=== PATIENT | female | born 1990 | race Caucasian/White ===

== ENCOUNTER → 2017-09-12 | Outpatient (CLI) | payer OTHER ==
[2016-05-02 17:37] VITALS: BMI 29.8
[~2017-09-12] MED LIST: ALBU8.5H IH; BUDE10.2 INH; BUDE10.25 IH; DOXY-229 PO; IBUP800T37 PO; Ibuprofen PO; LOR5/325 PO; OXYC-373 PO; PREN-127 PO; SUMA50TA35 PO
== END ==
LOC: LAB 14:16
PROVIDERS: ATTEND Obstetrics & Gynecology
DX: N92.0 Excessive and frequent menstruation with regular cycle (principal)
CPT/HCPCS: 36415; 84443; 85027; 85730

== ENCOUNTER 2017-10-07 21:07 | Emergency (ER) | payer OTHER ==
[2016-05-02 17:37] VITALS: Wt 68.0 kg
[2017-10-07 21:11] VITALS: BP 132/71
--- NOTE | 2017-10-07 21:13 | ER Report ---
History and Physical Time Seen By MD: 21:12 HPI/ROS CHIEF COMPLAINT: Swelling and redness of foot HISTORY OF PRESENT ILLNESS: 27-year-old female seen with redness and swelling of her right toes 2 through 4. She was started on antibiotics earlier today. She is concerned now that the erythema hasn't spread across the forefoot and involves arch of the foot. She notes no red streaks up her leg. She notes no calf tenderness. She notes no systemic fevers, chills or body aches. Allergies: Coded Allergies: cefaclor (Verified Allergy, Severe, 10/07/17) Home Meds Active Scripts Budesonide/Formoterol Fumarate (SYMBICORT 160-4.5 MCG INHALER) 10.2 Gm Inh, 10.2 GM INH BID, #1 INH 11 Refills Prov:RIGOBERTO TREADWELL MD 09/12/17 Sumatriptan Succinate (SUMATRIPTAN SUCCINATE) 50 Mg Tablet, 50 MG PO ONCE Y for migraine, #10 TAB 1 Refill Take one tablet po when migraine starts, may repeat after 2 hours one time if needed Prov:RIGOBERTO TREADWELL MD 07/05/17 Reported Medications Sulfamethoxazole/Trimet 800-160 Mg Tab (BACTRIM DS TABLET) 1 Each Tablet, 1 TAB PO Q12H, TAB 10/07/17 Prednisone (PREDNISONE) 20 Mg Tablet, 20 MG PO QDAY, TAB 10/07/17 Discontinued Scripts Doxycycline Monohydrate (DOXYCYCLINE MONOHYDRATE) 100 Mg Tablet, 100 MG PO BID, #20 TAB 0 Refills 1 tab PO twice daily for 10 days Prov:RIGOBERTO TREADWELL MD 09/12/17 Albuterol Sulfate 90 Mcg/Act (PROAIR HFA 90 MCG/ACT) 8.5 Gm Hfa.aer.ad, 1-2 PUFF IH 3-4XD Y for wheezing for 30 Days, #1 INHALER 2 Refills Prov:RIGOBERTO TREADWELL MD 07/05/17 Reviewed Nurses Notes: Yes Old Medical Records Reviewed: Yes Hx Smoking: No Smoking Status: Never Smoker Exposure to Second Hand Smoke?: No Constitutional Vital Sign - Last 24 Hours 10/07/17 21:11 Temp 98.1 Pulse 100 Resp 16 B/P (MAP) 132/71 Pulse Ox 92 O2 Delivery Room Air Physical Exam General appearance: Alert no distress. Respiratory: Chest is non tender, lungs are clear to auscultation. Cardiac: Regular rate and rhythm Extremities: Examination of the right foot reveals neurovascularly intact foot. The toes are mildly erythematous. Erythema extends up the entire forefoot and into the arch of the foot yearly to the heel. There are no red streaks, there is no calf tenderness. There is no Homans sign. DIFFERENTIAL DIAGNOSIS: After history and physical exam differential diagnosis was considered for cellulitis, allergic reaction, arthritis Medical Decision Making ED Course/Re-evaluation ED Course Patient was admitted to an examination room. H&P was done. The dental diagnoses was considered. On clinical examination. Patient has spreading of the erythema up to her foot. This many natural progression. I do not think that her cellulitis is getting worse. Patient's advised to continue the course in take ibuprofen 600 mg 3 times daily and apply warm compresses to her foot. She is advised to follow-up with primary care or whoever prescribed the antibiotic if unimproved in 2-3 days. Decision to Disposition Date: Oct 07, 2017 Decision to Disposition Time: 21:24 Depart Departure Latest Vital Signs Vital Signs Date Time Temp Pulse Resp B/P (MAP) Pulse Ox O2 Delivery O2 Flow Rate FiO2 10/07/17 21:11 98.1 100 16 132/71 92 Room Air Impression: Primary Impression: Swelling of right foot Additional Impression: Cellulitis of right toe Condition: Improved Disposition: HOME OR SELF-CARE Referrals: RIGOBERTO TREADWELL MD (PCP) Patient Instructions: Cellulitis (ED) Additional Instructions: Apply warm compresses or soak in hot water Take ibuprofen 200 mg 2-3 tablets 3 times a day with food Take all medication with food Get rechecked if not improved in 2 days Problem Qualifiers JESSICA KELLY DO Oct 07, 2017 21:12
[2017-10-07] MEDS ORDERED: SULF-198 PO (21:21)
[2017-10-07] MEDS ORDERED: PRED20TA6 PO (21:21)
[2017-10-09] MEDS ORDERED: CLIN300C99 PO (10:59)
== END 2017-10-07 21:30 | disposition home or self-care (01) ==
LOC: ER 21:16
DX: L03.031 Cellulitis of right toe (principal); Z79.899 Other long term (current) drug therapy
CPT/HCPCS: 99282

== ENCOUNTER → 2017-10-19 | Outpatient (CLI) | payer OTHER ==
[2016-05-02 17:37] VITALS: BMI 29.8
[~2017-10-19] MED LIST changes: +CLIN300C99 PO; +PRED20TA6 PO; +SULF-198 PO
--- NOTE | 2017-10-19 14:45 | RADIOLOGY IMAGING REPORT ---
FACILITY: [facility] PATIENT NAME: Fallon Cary : 1990 MR: [id number] V: [id number] EXAM DATE: ORDERING PHYSICIAN: RIGOBERTO TREADWELL TECHNOLOGIST: Location: [facility] [place] Patient: Fallon Cary : 1990 Visit/Account:[id number] Date of Sevice: 10/19/2017 EXAMINATION: Doppler ultrasound deep veins unilateral lower extremity HISTORY: Swelling of right foot, cellulitis of right toe. COMPARISON: None. FINDINGS: Grayscale compression, duplex and color Doppler interrogation of the right lower extremity deep veins from common femoral vein to proximal calf was performed. The greater saphenous vein in the ipsilater al proximal thigh was evaluated using similar technique. Right lower extremity: Common femoral vein: Negative. Femoral vein: Negative. Deep femoral vein: Negative. Popliteal vein: Negative. Visualized deep calf veins: Negative. Greater saphenous vein in the proximal thigh: Negative. Popliteal fossa: Negative. Waveforms: Normal respiratory phasicity. There is a 17 x 15 x 11 mm popliteal lymph node with slightly hypoechoic cortex. Normal fatty hilum in the node. IMPRESSION: 1. No DVT of the right lower extremity. 2. Mildly enlarged right popliteal lymph node is likely reactive. Report Dictated By: Amber Goode MD at 10/19/2017 2:39 PM Report E-Signed By: Amber Goode MD at 10/19/2017 2:41 PM WSN:[email or web address]
== END ==
LOC: US 01:05
PROVIDERS: ATTEND Obstetrics & Gynecology
DX: M79.89 Other specified soft tissue disorders (principal); L03.031 Cellulitis of right toe

== ENCOUNTER → 2017-12-25 | Outpatient (CLI) | payer OTHER ==
[2016-05-02 17:37] VITALS: BMI 29.8
[~2017-12-25] MED LIST changes: +BUTA1TAB14 PO
--- NOTE | 2017-12-25 11:40 | RADIOLOGY IMAGING REPORT ---
FACILITY: [facility] PATIENT NAME: Fallon Cary : 1990 MR: [id number] V: [id number] EXAM DATE: ORDERING PHYSICIAN: RIGOBERTO TREADWELL TECHNOLOGIST: Location: [facility] Patient: Fallon Cary : 1990 Visit/Account:[id number] Date of Sevice: 12/25/[address] [facility] HISTORY: pelvic pain, irregular menstrual bleeding TECHNIQUE: Transvaginal and transabdominal ultrasound pelvis. COMPARISON: CT on pelvis March 18, 2015 FINDINGS: Uterus: ; 8.7 cm length x 3.7 cm AP x 6.5 cm transverse. Myometrium: Unremarkable. Endometrium: There is a 7 mm calcification along the superior border of the endometrium; double thick ness 6.7 mm. Cervix: Grossly negative. Ovaries: Right - 2.7 x 1.5 x 2.3 cm Left - 3.6 x 2.2 x 1.9 cm. There is a 1.6 x 1.2 cm hypoechoic region within the left ovary, pos sibly a debris-filled cyst Blood flow is documented in each ovary by duplex Doppler ultrasound. Adnexa: Grossly unremarkable. Free pelvic fluid: mild to moderate amount of free pelvic fluid. IMPRESSION: 7 mm calcification along superior border the endometrium 1.6 x 1.2 cm hypoechoic region within the left ovary, possibly a debris-filled cyst Mild to moderate amount of free pelvic fluid Report Dictated By: Charley Jacques MD at 12/25/2017 11:09 AM Report E-Signed By: Charley Jacques MD at 12/25/2017 11:36 AM WSN:[email or web address]
== END ==
LOC: RAD 07:50
PROVIDERS: ATTEND Obstetrics & Gynecology
DX: Z02.9 Encounter for administrative examinations, unspecified (principal)
CPT/HCPCS: 76830

== ENCOUNTER 2018-01-10 01:45 | Day surgery (SDC) | payer OTHER ==
[2016-05-02 17:37] VITALS: Ht 175.3 cm; Wt 70.3 kg
[2018-01-10] VITALS (7 sets, daily range): BP systolic 96–117; BP diastolic 50–63
[~2018-01-10] VITALS: Ht 175.3 cm; Wt 70.3 kg
[2018-01-10 06:18] LABS: PLATELET COUNT, AUTOMATED 256 K/uL (150-450)
[2018-01-10] MEDS ORDERED: NORMOSOL R SOLN(*) 1000 ML BAG 1,000 ML IV PRN (06:30)
[2018-01-10] MEDS ORDERED: ceFAZolin(*) 1 GM VIAL 1 GM in NS(*) 0.9% 100 ML ADDVANT BAG 100 ML IVPB ONE (06:30)
[2018-01-10] MEDS ORDERED: LIDOCAINE/SOD BICARB 8.4% SYR ID ONE (06:30)
[2018-01-10] MEDS ORDERED: MIDAZOLAM 2 MG/2 ML VIAL IVP PRN (06:30)
[2018-01-10] MEDS ORDERED: FAMOTIDINE 20 MG TAB PO ONE (06:30)
[2018-01-10] MEDS ORDERED: LIDOCAINE MPF 1% 5 ML VIAL ONE (07:09)
[2018-01-10] MEDS ORDERED: PROPOFOL EMUL(*) 10MG/ML 20 ML 20 ML ONE (07:09)
[2018-01-10] MEDS ORDERED: ONDANSETRON 4 MG/2 ML VIAL ONE (07:09)
[2018-01-10] MEDS ORDERED: DEXAMETHASONE SOD 4 MG/ML VIAL ONE (07:09)
[2018-01-10] MEDS ORDERED: fentaNYL CITR 100 MCG/2 ML AMP ONE ×2 (07:10→08:24)
[2018-01-10] MEDS ORDERED: KETAMINE HCL 200 MG/20 ML MDV ONE (07:13)
[2018-01-10] MEDS ORDERED: LR(*) 1000 ML BAG 1,000 ML IV ONE (07:59)
--- NOTE | 2018-01-10 07:59 | Post Operative Note ---
Operative Note - CAFE AIDE Operative Day Date: Jan 10, 2018 Time: 07:58 Physicians Surgeon: Umberto Anesthesia: General LMA, Liz[place]aga Diagnosis Pre-Op Diagnosis: Endometrial mass Post-Op Diagnosis: Calcified placenta Procedure Procedure(s): Dx hscope MyoSure excision of calcified placenta Specimen Removed:(Maybe N/A): Calcified placenta Fluids Fluids: IVF: 1000cc UOP: 30cc Estimated Blood Loss: Minimal RIGOBERTO TREADWELL MD Jan 10, 2018 07:59
[2018-01-10] MEDS ORDERED: METOCLOPRAMIDE 10 MG/2 ML SDV IVP PRN (08:00)
[2018-01-10] MEDS ORDERED: IBUP800T37 PO (08:01)
[2018-01-10] MEDS ORDERED: LOR5/325 PO (08:01)
--- NOTE | 2018-01-10 08:04 | Short(Outpt) Discharge Summary ---
Discharge Summary Reason for Hosp/Final Diag: (1) History of repair of coarctation of aorta Departure Discharge to: Home, Self Care Discharge Instructions Home Meds Active Scripts Hydrocodone Bit/Acetaminophen (HYDROCODON-ACETAMINOPHEN 5-325) 1 Each Tablet, 1 EACH PO Q4-6H PRN for pain, #10 TAB 0 Refills Prov:RIGOBERTO TREADWELL MD 01/10/18 Budesonide/Formoterol Fumarate (SYMBICORT 160-4.5 MCG INHALER) 10.2 Gm Inh, 10.2 GM INH BID, #1 INH 11 Refills Prov:RIGOBERTO TREADWELL MD 09/12/17 Discontinued Reported Medications Sulfamethoxazole/Trimet 800-160 Mg Tab (BACTRIM DS TABLET) 1 Each Tablet, 1 TAB PO Q12H, TAB 10/07/17 Prednisone (PREDNISONE) 20 Mg Tablet, 20 MG PO QDAY, TAB 10/07/17 Discontinued Scripts Butalb/Acetaminophen/Caff 50-325-40 Mg (FIORICET 50-325-40) 1 Each Tablet, 1-2 TAB PO Q4H, #30 TAB 1 Refill Prov:RIGOBERTO TREADWELL MD 12/19/17 Clindamycin Hcl (CLINDAMYCIN HCL) 300 Mg Capsule, 300 MG PO Q8H, #21 CAPSULE Prov:BRENDON BOGGS DO 10/09/17 Sumatriptan Succinate (SUMATRIPTAN SUCCINATE) 50 Mg Tablet, 50 MG PO ONCE PRN for migraine, #10 TAB 1 Refill Take one tablet po when migraine starts, may repeat after 2 hours one time if needed Prov:RIGOBERTO TREADWELL MD 07/05/17 Follow up Referrals: MANAGER LPN - In Two Weeks @ [facility] [place] with RIGOBERTO TREADWELL MD Diet: Regular Activity: As Tolerated RIGOBERTO TREADWELL MD Jan 10, 2018 08:04
--- NOTE | 2018-01-10 08:59 | OPERATIVE REPORT 1 ---
EVENT DATE: January 10, 2018 SURGEON: Anjali Shipman MD ANESTHESIOLOGIST: Ángel Lizarraga MD ANESTHESIA: General/LMA. PREOPERATIVE DIAGNOSIS Endometrial mass. POSTOPERATIVE DIAGNOSIS Calcified placenta. PROCEDURE PERFORMED 1. Diagnostic hysteroscopy. 2. MyoSure excision of calcified placenta. SPECIMEN REMOVED Calcified placenta. IV FLUIDS 1000 cc. URINE OUTPUT 30 cc. ESTIMATED BLOOD LOSS Minimal. INDICATIONS FOR PROCEDURE This patient is a 27-year-old 2, para 2 who presented with difficulties getting as well as pelvic pain. During her evaluation, she was found to have a calcified appearing endometrial lesion. During an SIS, this was confirmed. She, therefore, was consented for hysteroscopic removal of this mass. Please see history and physical for full details. DESCRIPTION OF PROCEDURE The patient was properly identified and taken to the operating room. She was placed under general anesthetic with an LMA. She was then placed in the dorsal lithotomy position and prepped and draped in the usual fashion for a vaginal procedure. A time-out was taken. The patient's bladder was then drained of 30 cc's of clear yellow urine. A speculum was placed in the vagina to visualize the cervix, which was multiparous and without lesion. The anterior lip was grasped with an Allis clamp. The cervix was serially dilated using Hegar dilators up to 6 mm. The hysteroscope was then assembled, primed and introduced under direct visualization. The endometrial cavity looked within normal limits except at the very mid fundus of the uterus there was a calcified white tissue consistent with calcified placenta. The MyoSure LITE device was then utilized to excise this lesion without difficulty. The hysteroscope was then removed as well as the Allis clamp and speculum. A transvaginal ultrasound was then performed, confirming removal and excision of this calcified area. The patient tolerated the procedure well and recovered in the Post-Anesthesia Care Unit. [place]
[2018-01-10] MEDS ORDERED: IBUPROFEN 800 MG TAB PO SCH (09:00)
[2018-01-10] MEDS ORDERED: ALBUTEROL/IPRATROPIUM 3 ML NEB ONE (10:39)
[2018-01-10] MEDS ORDERED: ALBUTEROL/IPRATROPIUM 3 ML NEB NEB ONE (10:40)
[2018-01-12] MEDS ORDERED: CYCL10TA29 PO (14:11)
== END 2018-01-10 09:10 | disposition home or self-care (01) ==
LOC: OR 01:45
PROVIDERS: ATTEND Obstetrics & Gynecology
DX: N85.8 Other specified noninflammatory disorders of uterus (principal)
CPT/HCPCS: 36415; 58662; 84703; 85025; 88305; 94640; 94667; J1100; J2001; J2250; J2405; J2704; J3010; J3490; J7620; 82310; 82374; 82435; 82565; 82947; 84132; 84295; 84520

== ENCOUNTER → 2018-07-03 | Outpatient (CLI) | payer OTHER ==
[2016-05-02 17:37] VITALS: BMI 29.8
[~2018-07-03] MED LIST changes: +CYCL10TA29 PO; +MEDR10TA57 PO
== END ==
LOC: LAB 13:25
PROVIDERS: ATTEND Obstetrics & Gynecology Gynecology
DX: N83.201 Unspecified ovarian cyst, right side (principal)
CPT/HCPCS: 36415; 82670; 83001; 83002; 84144

== ENCOUNTER → 2018-07-09 | Outpatient (CLI) | payer OTHER ==
[2016-05-02 17:37] VITALS: BMI 29.8
== END ==
LOC: LAB 12:21
PROVIDERS: ATTEND Nurse Practitioner Family
DX: N91.2 Amenorrhea, unspecified (principal)
CPT/HCPCS: 36415; 82670; 84144

== ENCOUNTER → 2018-07-16 | Outpatient (CLI) | payer OTHER ==
[2016-05-02 17:37] VITALS: BMI 29.8
== END ==
LOC: LAB 12:08
PROVIDERS: ATTEND Obstetrics & Gynecology Gynecology
DX: N91.2 Amenorrhea, unspecified (principal)
CPT/HCPCS: 36415; 82670; 84144

== ENCOUNTER → 2018-08-01 | Outpatient (CLI) | payer OTHER ==
[2016-05-02 17:37] VITALS: BMI 29.8
== END ==
LOC: LAB 10:48
PROVIDERS: ATTEND Obstetrics & Gynecology Gynecology
DX: N91.2 Amenorrhea, unspecified (principal)
CPT/HCPCS: 36415; 82670; 84144

== ENCOUNTER → 2018-08-07 | Outpatient (CLI) | payer OTHER ==
[2016-05-02 17:37] VITALS: BMI 29.8
== END ==
LOC: LAB 12:48
PROVIDERS: ATTEND Obstetrics & Gynecology Gynecology
DX: N91.2 Amenorrhea, unspecified (principal)
CPT/HCPCS: 36415; 82670; 83520; 84144

== ENCOUNTER 2018-08-12 14:47 | Emergency (ER) | payer OTHER ==
[2016-05-02 17:37] VITALS: Wt 69.9 kg
--- NOTE | 2018-08-12 14:58 | ER Report ---
History and Physical Time Seen By MD: 14:55 Hx. of Stated Complaint: migraine since 1, prescription meds have not helped. tongue and right hand numbness, cant keep food down. HPI/ROS CHIEF COMPLAINT: Headache HISTORY OF PRESENT ILLNESS: This is a 27-year-old female that presented to the emergency room for headache. Patient states this is a typical migraine headache that started around 10:00 this morning, has not been able to manage it at home. She did take diclofenac as well as her amitriptyline. Typical presentation, right-sided headache with some numbness and tingling in the right face and cheek into her right fingers. Photophobic. Mild nausea no vomiting. No fevers or chill s. No chest pain or shortness of breath. No other abnormal findings. REVIEW OF SYSTEMS: Constitutional: No fever, no chills. Eyes: No discharge. ENT: No sore throat. Cardiovascular: No chest pain, no palpitations. Respiratory: No cough, no shortness of breath. Gastrointestinal: No abdominal pain, no vomiting. Genitourinary: No hematuria. Musculoskeletal: No back pain. Skin: No rashes. Neurological: As above. Allergies: Coded Allergies: cefaclor (Verified Allergy, Severe, 10/07/17) Home Meds Active Scripts Medroxyprogesterone Acetate (PROVERA) 10 Mg Tablet, 10 MG PO DAILY, #10 TAB 0 Refills Prov:RIGOBERTO TREADWELL MD 04/02/18 Cyclobenzaprine Hcl (CYCLOBENZAPRINE HCL) 10 Mg Tablet, 10 MG PO TID PRN for pain, #20 TAB 0 Refills Prov:RIGOBERTO TREADWELL MD 01/12/18 Budesonide/Formoterol Fumarate (SYMBICORT 160-4.5 MCG INHALER) 10.2 Gm Inh, 10.2 GM INH BID, #1 INH 11 Refills Prov:RIGOBERTO TREADWELL MD 09/12/17 Past Medical/Surgical History Patient has a past medical and surgical history of PEs an infant, previously lung capacity secondary to cardiac surgery, wears glasses, thoracic spine fusion. Reviewed Nurses Notes: Yes Hx Smoking: No Smoking Status: Never Smoker Exposure to Second Hand Smoke?: No Hx Substance Use Disorder: No Hx Alcohol Use: No Constitutional Vital Sign - Last 24 Hours 6/16/19 6/16/19 14:52 16:15 Temp 97.9 Pulse 69 Resp 18 B/P (MAP) 127/78 142/78 (99) Pulse Ox 97 O2 Delivery Room Air Physical Exam General Appearance: The patient is alert, has no immediate need for airway protection and no signs of toxicity. Eyes: Pupils equal and round no pallor or injection. ENT, Mouth: Mucous membranes are moist. Respiratory: There are no retractions, lungs are clear to auscultation. Cardiovascular: Regular rate and rhythm. No murmurs, clicks or rubs. Gastrointestinal: Abdomen is soft and non tender, no masses, bowel sounds normal. Neurological: Alert and oriented 4. Moving all extremity. Following all commands. No focal neurologic deficits. Skin: Warm and dry, no rashes. Musculoskeletal: Neck is supple non tender. Extremities are nontender, nonswollen and have full range of motion. DIFFERENTIAL DIAGNOSIS: After history and physical exam differential diagnosis was considered for headache including but not limited to subarachnoid hemorrhage, migraine headache, tension headache and infectious causes such as meningitis, pharyngitis and sinusitis. Medical Decision Making ED Course/Re-evaluation Clinical Indication for ER IV: Hydration, IV Access ED Course Patient was admitted to room. A history and physical obtained. Differential diagnoses were considered. IV was started. A 1 L normal saline bolus was given. 4 mg IV Zofran, 12.5 mg IV Phenergan, 25 mg IV Benadryl, 30 mg IV Toradol, 5 mg IV Decadron. Patient states feeling significant only better after the medications administered. Patient states she is ready to go home, she will follow-up with her neurologist this week for reevaluation of her medications. Patient was also encouraged to return to the emergency department for any concerns or worsening symptoms, she is agreeable with this plan of care and discharged home. Decision to Disposition Date: Aug 12, 2018 Decision to Disposition Time: 16:31 Depart Departure Latest Vital Signs Vital Signs Date Time Temp Pulse Resp B/P (MAP) Pulse Ox O2 Delivery O2 Flow Rate FiO2 08/12/18 16:15 142/78 (99) 08/12/18 14:52 97.9 69 18 97 Room Air Impression: Primary Impression: Migraine headache Condition: Improved Disposition: HOME OR SELF-CARE Referrals: RIGOBERTO TREADWELL MD (PCP) Patient Instructions: Migraine Headache (ED) Additional Instructions: Please continue with your regular medications. Please follow-up with your neurologist this week for reevaluation of your medications to use for migraine headaches. Please do not take your diclofenac until around midnight tonight if needed. Drink plenty of water. Get plenty of rest. Return to the emergency room for any other concerns or worsening symptoms. Problem Qualifiers Primary Impression: Migraine headache Migraine type: without aura Status migrainosus presence: without status migrainosus Intractability: not intractable Qualified Codes: G43.009 - Migraine without aura, not intractable, without status migrainosus SUKHJINDER PADILLA [employer]ESS [employer]IPPER-BC Aug 12, 2018 14:58
[2018-08-12] MEDS ORDERED: PROMETHAZINE 25 MG/ML 1 ML AMP IVP ONE (15:05)
[2018-08-12] MEDS ORDERED: KETOROLAC 15 MG/ML VIAL IVP ONE (15:05)
[2018-08-12] MEDS ORDERED: diphenhydrAMINE 50 MG/ML VIAL IVP ONE (15:05)
[2018-08-12] MEDS ORDERED: NS(*) 0.9% 1000 ML BAG 1,000 ML IV ONE (15:05)
[2018-08-12] MEDS ORDERED: DEXAMETHASONE SOD PHOS 10MG/ML IVP ONE (15:05)
[2018-08-12] MEDS ORDERED: ONDANSETRON 4 MG/2 ML VIAL IVP ONE (15:05)
[2018-08-12 16:15] VITALS: BP 142/78
== END 2018-08-12 16:41 | disposition home or self-care (01) ==
LOC: ER 14:59
DX: G43.009 Migraine without aura, not intractable, without status migrainosus (principal)
CPT/HCPCS: 96361; 96374; 96375; 99284; J1100; J1200; J1885; J2405; J2550; J7030

== ENCOUNTER → 2018-09-11 | Outpatient (CLI) | payer OTHER ==
[2016-05-02 17:37] VITALS: BMI 29.8
--- NOTE | 2018-09-11 12:25 | RADIOLOGY IMAGING REPORT ---
FACILITY: [facility] PATIENT NAME: Fallon Cary : 1990 MR: [id number] V: [id number] EXAM DATE: ORDERING PHYSICIAN: GABBI GREEN TECHNOLOGIST: Location: [facility] Patient: Fallon Cary : 1990 Visit/Account:[id number] Date of Sevice: 09/11/2018 MR BRAIN/BRAIN STEM W/O CON Comparisons: None. Additional pertinent history: Migraine with aura TECHNIQUE: Multiplanar, multisequence brain MRI was performed without gadolinium contrast. FINDINGS: Sagittal midline structures and craniocervical junction: Negative. Midline shift: None. Ventricles: Negative. Brain parenchyma: Diffusion weighted imaging: Negative. Gradient sequence: Negative. T2 weighted FLAIR images: Negative. Extra-axial spaces: Negative. Dural venous sinuses and major arterial flow voids: Negative. Mastoid air cells and paranasal sinuses: Negative. Surrounding soft tissues and orbits: Negative. Impression: Normal brain MRI without contrast. Report Dictated By: Alberto Palmer MD at 09/11/2018 12:15 PM Report E-Signed By: Alberto Palmer MD at 09/11/2018 12:18 PM WSN:[id number]
== END ==
LOC: MRI 00:47
PROVIDERS: ATTEND Psychiatry & Neurology Neurology
DX: G43.109 Migraine with aura, not intractable, without status migrainosus (principal)
CPT/HCPCS: 70551